=== PATIENT | male | born 1985 | race Caucasian/White ===

== ENCOUNTER 2020-02-20 00:46 | Emergency (ER) | payer OTHER ==
[2020-02-20 00:54] VITALS: RESP 18; TEMP 98
[2020-02-20] MEDS ORDERED: LORazepam 2 MG/ML INJ IV STA (01:02)
[2020-02-20] MEDS ORDERED: SODIUM CHLORIDE 0.9% 500 ML 500 ML IV ONE (01:02)
[2020-02-20 01:24] LABS: Basophils # (A) 0.1 k/uL (0-0.2); Basophils % (A) 2 %; Eosinophils # (A) 0.2 k/uL (0-0.7); Eosinophils % (A) 3 %; HCT 46.2 % (39.0-53.0); HGB 15.8 gm/dL (13.0-17.5); Lymphocytes # (A) 1.2 k/uL (1.0-4.8); Lymphocytes % (A) 24 %; MCH 33.6 pg (25.0-35.0); MCHC 34.3 g/dL (31.0-37.0); MCV 98.1 fL (80.0-100.0); Mean Platelet Volume 7.4; Monocytes # (A) 0.3 k/uL (0-1.0); Monocytes % (A) 5 %; Neutrophils # (A) 3.3 k/uL (1.3-7.7); Neutrophils % (A) 64 %; Platelet Count 190 k/uL (150-450); RBC 4.71 m/uL (4.30-5.90); RDW 11.8 % (11.5-15.5); WBC 5.2 k/uL (3.8-10.6)
[2020-02-20 01:39] LABS: Sodium 132 mmol/L (137-145)
[2020-02-20 01:42] LABS: ALT 65 U/L (4-49); AST 96 U/L (17-59); African American GFR (CKD) >90 (>60 ml/min/1.73 sqM); Albumin 4.4 g/dL (3.5-5.0); Alcohol <10 mg/dL; Alkaline Phosphatase 106 U/L (38-126); Anion Gap 10 mmol/L; Blood Urea Nitrogen 6 mg/dL (9-20); Calcium 9.4 mg/dL (8.4-10.2); Carbon Dioxide 22 mmol/L (22-30); Chloride 100 mmol/L (98-107); Glucose 164 mg/dL (74-99); Non-African American GFR(CKD) >90 (>60 ml/min/1.73 sqM); Potassium 3.8 mmol/L (3.5-5.1); Total Bilirubin 1.3 mg/dL (0.2-1.3); Total Protein 7.3 g/dL (6.3-8.2)
[2020-02-20] MEDS ORDERED: DIAZEPAM 5 MG/ML 2 ML INJ IVP STA (01:51)
[2020-02-20 02:04] VITALS: BP 123/80; PULSE 69
[2020-02-20] MEDS ORDERED: diazePAM 5 MG TAB PO STA (02:31)
--- NOTE | 2020-02-20 02:42 | ED ---
General Adult HPI - General Chief complaint: Seizure Stated complaint: poss seizure Time Seen by Provider: 02/20/20 00:53 Source: EMS, RN notes reviewed, old records reviewed Mode of arrival: EMS - History of Present Illness Initial comments: 34-year-old male patient to ED for evaluation. Patient's and girlfriend provide history. Patient has been drinking heavily recently. He did not drink any alcohol today. Patient and his girlefiend were watching TV and when they were about to go to bed on the couch girlfriend reports that patient had a short seizure. No trauma. Patient reports this has not happened before. Denies any other complaints. Systemic: Pt denies fatigue, fever/chills, rash. Pt denies weakness, night sweats, weight loss. Neuro: Pt denies headache, visual disturbances, syncope or pre-syncope. HEENT: Pt denies ocular discharge or irritation, otalgia, rhinorrhea, pharyngitis or notable lymphadenopathy. Cardiopulmonary: Pt denies chest pain, SOB, heart palpitations, dyspnea on exertion. Abdominal/GI: Pt denies abdominal pain, n/v/d. : Pt denies dysuria, burning w/ urination, frequency/urgency. Denies new onset urinary or bowel incontinence. MSK: Pt denies myalgia, loss of strength or function in extremities. Neuro: Pt denies new onset weakness, paresthesias. - Related Data Previous Rx's Medication Instructions Recorded Diazepam [Valium] 5 mg PO Q12HR 3 Days #6 tab 02/20/20 Allergies Allergy/AdvReac Type Severity Reaction Status Date / Time No Known Allergies Allergy Verified 02/20/20 01:06 Review of Systems ROS Statement: Those systems with pertinent positive or pertinent negative responses have been documented in the HPI. ROS Other: All systems not noted in ROS Statement are negative. Past Medical History Additional Past Medical History / Comment(s): etoh abuse History of Any Multi-Drug Resistant Organisms: None Reported Past Surgical History: No Surgical Hx Reported Past Psychological History: No Psychological Hx Reported Smoking Status: Current every day smoker Past Alcohol Use History: Daily Past Drug Use History: None Reported General Exam - General Exam Comments Initial Comments: Constitutional: NAD, AOX3, Pt has pleasant affect. HEENT: NC/AT, trachea midline, neck supple, no lymphadenopathy. External ears appear normal, without discharge. Mucous membranes moist. Eyes PERRLA, EOM intact. There is no scleral icterus. No pallor noted. Cardiopulmonary: RRR, no murmurs, rubs or gallops, no JVD noted. Lungs CTAB in anterior and posterior [place]. No peripheral edema. Abdominal exam: Abdomen soft and non-distended. Abdomen non-tender to palpation in all 4 quadrants. Bowel sounds active in LLQ. No hepatosplenomegaly. No ecchymosis Neuro: CN II-XII intact. No nuchal rigidity. No raccon eyes, no johnson sign, no hemotympanum. No cervical spinal tenderness. MSK: Full active ROM in upper and lower extremities, 5/5 stregnth. Course Vital Signs 02/20/20 02/20/20 00:52 02:03 Temperature 98 F Pulse Rate 85 69 Respiratory 18 18 Rate Blood Pressure 138/95 123/80 O2 Sat by Pulse 98 98 Oximetry Medical Decision Making - Medical Decision Making 34-year-old patient to ED for alcohol procedure. Laboratory investigations reveal a acid of 5.7. EKG is nonischemic. Patient was alert initially somewhat tremulous however after Ativan he is not tremelous whatsoever. I did offer admission the patient is requesting discharge. Patient will be discharged with 3 days worth of Valium and strict return precautions as well as follow-up. Case discussed with Dr. Chou. - Lab Data Result diagrams: 02/20/20 01:14 02/20/20 01:16 Lab Results 02/20/20 02/20/20 02/20/20 Range/Units 01:14 01:16 01:16 WBC 5.2 (3.8-10.6) k/uL RBC 4.71 (4.30-5.90) m/uL Hgb 15.8 (13.0-17.5) gm/dL Hct 46.2 (39.0-53.0) % MCV 98.1 (80.0-100.0) fL MCH 33.6 (25.0-35.0) pg MCHC 34.3 (31.0-37.0) g/dL RDW 11.8 (11.5-15.5) % Plt Count 190 (150-450) k/uL MPV 7.4 Neutrophils % 64 % Lymphocytes % 24 % Monocytes % 5 % Eosinophils % 3 % Basophils % 2 % Neutrophils # 3.3 (1.3-7.7) k/uL Lymphocytes # 1.2 (1.0-4.8) k/uL Monocytes # 0.3 (0-1.0) k/uL Eosinophils # 0.2 (0-0.7) k/uL Basophils # 0.1 (0-0.2) k/uL Sodium 132 L (137-145) mmol/L Potassium 3.8 (3.5-5.1) mmol/L Chloride 100 (98-107) mmol/L Carbon Dioxide 22 (22-30) mmol/L Anion Gap 10 mmol/L BUN 6 L (9-20) mg/dL Creatinine 0.73 (0.66-1.25) mg/dL Est GFR (CKD-EPI)AfAm >90 (>60 ml/min/1.73 sqM) Est GFR (CKD-EPI)NonAf >90 (>60 ml/min/1.73 sqM) Glucose 164 H (74-99) mg/dL Plasma Lactic Acid Justino 5.7 H* (0.7-2.0) mmol/L Calcium 9.4 (8.4-10.2) mg/dL Total Bilirubin 1.3 (0.2-1.3) mg/dL AST 96 H (17-59) U/L ALT 65 H (4-49) U/L Alkaline Phosphatase 106 (38-126) U/L Total Protein 7.3 (6.3-8.2) g/dL Albumin 4.4 (3.5-5.0) g/dL Serum Alcohol <10 mg/dL - EKG Data -: EKG Interpreted by Me (and Dr. Chou ) EKG Comments: ventricular rate 74, MA interval 162, QRS 132, QT/QTc 406/450. Normal sensory rhythm, right bundle branch block. No concern for acute ischemia at this time. Disposition Clinical Impression: Alcohol use with withdrawal, Alcohol withdrawal seizure Disposition: HOME SELF-CARE Condition: Serious Instructions (If sedation given, give patient instructions): Alcohol Withdrawal (ED) Additional Instructions: Take valium every 12 hours. Return to ED if your withdrawal symptoms return. Prescriptions: Diazepam [Valium] 5 mg PO Q12HR 3 Days #6 tab Is patient prescribed a controlled substance at d/c from ED?: No Referrals: None,Stated [Primary Care Provider] - 1-2 days
== END 2020-02-20 02:58 | disposition home or self-care (01) ==
LOC: EC 00:46
DX: F10.239 Alcohol dependence with withdrawal, unspecified (principal); R56.9 Unspecified convulsions; F17.200 Nicotine dependence, unspecified, uncomplicated; Y90.0 Blood alcohol level of less than 20 mg/100 ml
CPT/HCPCS: 99285; 96374; 96375; 96361; 36415; 93005; 80053; 83605; 85025; 80320; J2060; J3360